=== PATIENT | female | born 1955 | race Two or more races ===

== ENCOUNTER 2024-03-24 15:17 | Inpatient (IN) | payer MEDICARE, OTHER, SELFPAY ==
[2024-03-24] VITALS (8 sets, daily range): BP systolic 102–130; BP diastolic 60–95; BMI 27.4; BMI 26.3
[2024-03-24 09:32] LABS: COVID-19 Antigen Negative (Negative)
[2024-03-24] MEDS: TORADOL 15 MG IV (11:46)
[2024-03-24 11:49] LABS: % Basophils 0.3 % (0-2); % Eosinophils 6.3 % (0-6); % Immature Granulocytes 0.2 % (0-0.5); % Lymphocytes 46.9 % (20.5-51.1); % Monocytes 8.6 % (1.7-9.3); % Neutrophils 37.7 % (42.2-75.2); Absolute Eosinophils 0.4 10^3/uL (0-0.7); Absolute Lymphocytes 2.8 10^3/uL (1.2-3.4); Absolute Monocytes 0.5 10^3/uL (0.1-0.6); Absolute Neutrophils 2.3 10^3/uL (1.4-6.5); Hematocrit 39.8 % (37.0-47.0); Mean Corp Hgb Conc. 32.7 g/dL (33.0-37.0); Mean Corpuscular Hgb 25.9 pg (27.0-31.0); Mean Corpuscular Volume 79.4 fL (81.0-99.0); Mean Platelet Volume 9.8 fL (7.4-10.4); Nucleated Red Blood Cells % 0 %; Platelet Count 213 10^3/uL (130-400); Red Blood Cell Count 5.01 10^6/uL (4.20-5.40); Red Cell Dist. Width 13.5 % (11.5-14.5)
[2024-03-24 12:02] LABS: Albumin 4.3 g/dl (3.5-5.0)
[2024-03-24 12:04] LABS: Lactic Acid 0.7 mmol/L (0.7-2.0)
[2024-03-24 12:12] LABS: ALT (SGPT) 17 U/L (0-35); AST (SGOT) 25 U/L (14-36); Alkaline Phosphatase 71 U/L (38-126); Blood Urea Nitrogen 17 mg/dl (7-17); Calcium 9.5 mg/dl (8.4-10.2); Carbon Dioxide 32 mmol/L (22-30); Chloride 96 mmol/L (98-107); Estimated Creatinine Clearance 72 ml/min; Glucose 108 mg/dl (70-99); Potassium 3.7 mmol/L (3.5-5.1); Sodium 139 mmol/L (135-145); Total Bilirubin 0.5 mg/dl (0.2-1.3); Total Protein 7.5 g/dl (6.3-8.2); eGFR > 60.00
--- NOTE | 2024-03-24 12:37 | ED.GENMED ---
History of Present Illness
<Alfonzo Maxwell Jr., PA-C - Last Filed: 03/24/24 14:32>
General
Chief Complaint: Cold/Flu/URI Symptoms
Source: patient
Exam Limitations: none
Time Seen by Provider: 03/24/24 10:19
Nursing documentation reviewed up to this point in time: agreed with
History of Present Illness
History of Present Illness:
68-year-old female past medical history of hypertension presenting to the emergency department today with concerns of initial cough sore throat congestion over the past week but has more recently developed right sided nostril discomfort with
spreading redness into the right side of her face. Worsening since last night. Denies specific fevers chest pain shortness of breath.
Past History
<Alfonzo Maxwell Jr., PA-C - Last Filed: 03/24/24 14:32>
Past History
ED Past Medical History: HTN and Hypothyroidism
ED Past Surgical History: Appendectomy
Social History
Tobacco: Non-smoker
Alcohol: None
Drug: None
Living: with family
Family History
Family History: Early CAD (Mother age 50 [place], Father age 39 [place], brother age 39 [place], sister age 61 [place], other brother with CAD and multiple stents.)
Review of Systems
<CASTILLO Avila Jr. Last Filed: 03/24/24 14:32>
Review of Systems
Allergies reviewed?: Yes
All Other Systems: ROS reviewed and negative except as documented in HPI and ROS
Phy Exam
<Alfonzo Maxwell Jr., PA-C - Last Filed: 03/24/24 14:32>
Physical Exam
Physical Exam:
GENERAL: Alert , in no apparent distress
EYE: pupils equal and reactive
NECK: Supple, no significant adenopathy.
ENT: Redness and swelling to the right side of the face and as well as significant swelling to the right nostril. No purulent drainage normal posterior pharynx no significant neck lymphadenopathy o/p clr, mmm.
CARDIAC: Regular rate and rhythm .
LUNGS: Clear breath sounds bilaterally, no acute respiratory distress, no wheezes/rales/rhonchi
ABDOMEN: Soft, without focal tenderness, no r/g, no cvat
NEUROLOGICAL: Alert and oriented, no focal neuro deficits
SKIN: Warm and dry, skin intact.
MUSCULOSKELETAL: No edema, well perfused.
PSYCH: Normal and appropriate interaction.
Course
<Alfonzo Maxwell Jr., PA-C - Last Filed: 03/24/24 14:32>
Orders/Labs/Results
Orders:
Orders
03/24/24 09:03
COVID-19 Antigen Urgent
Source: Nasal Swab
Influenza A+B Rapid Molecular Urgent
ABRAM Source: Nasal Swab
Specimen Description:
03/24/24 11:31
CT Facial Bones W/ Iv Contrast Urgent
Comment:
Reason For Exam: swelling right side of face/nose
03/24/24 11:35
CBC/With Diff [Complete Blood Count/With Diff] Urgent
CMP [Comprehensive Metabolic Panel] Urgent
Lactic Acid Urgent
Wound Culture [Wound/Abscess/Other Culture] Urgent
ABRAM Source: Face
Specimen Description: Right
Date Specimen was Collected: 03/24/24
Time Specimen was Collected: 11:33
03/24/24 11:38
Ketorolac [Toradol] 15 mg IV NOW STA
03/24/24 13:28
Ampicillin/Sulbactam 3 G [Unasyn] 3 gm 0.9% Sodium Chloride 100 ml [Nss] 100 ml IV NOW
03/24/24 14:13
Vancomycin [Vancocin] 1,500 mg 0.9% Sodium Chloride [Nss] 20 ml 0.9% Sodium Chloride 250 ml [Nss] 250 ml IV NOW
03/24/24 14:18
Ampicillin/Sulbactam 3 G [Unasyn] 3 gm 0.9% Sodium Chloride 100 ml [Nss] 100 ml IV NOW
Abnormal Lab Results
03/24/24
11:35
MCV 79.4 L fL
(81.0-99.0)
MCH 25.9 L pg
(27.0-31.0)
MCHC 32.7 L g/dL
(33.0-37.0)
Neutrophils % 37.7 L %
(42.2-75.2)
Eosinophils % 6.3 H %
(0-6)
Chloride 96 L mmol/L
(98-107)
Carbon Dioxide 32 H mmol/L
(22-30)
Glucose 108 H mg/dl
(70-99)
03/24/24 11:35
03/24/24 11:35
Vital Signs
Initial and Last Documented VS:
Initial Vital Signs
Temp Pulse Resp BP Pulse Ox
97.9 F 68 18 119/76 98
03/24/24 08:56 03/24/24 08:56 03/24/24 08:56 03/24/24 08:56 03/24/24 08:56
Last Documented Vital Signs
Temp Pulse Resp BP Pulse Ox
97.9 F 60 18 116/63 99
03/24/24 08:56 03/24/24 12:30 03/24/24 08:56 03/24/24 12:00 03/24/24 12:30
<Mike Ryan MD - Last Filed: 03/24/24 14:18>
Orders/Labs/Results
Orders:
Orders
03/24/24 09:03
COVID-19 Antigen Urgent
Source: Nasal Swab
Influenza A+B Rapid Molecular Urgent
ABRAM Source: Nasal Swab
Specimen Description:
03/24/24 11:31
CT Facial Bones W/ Iv Contrast Urgent
Comment:
Reason For Exam: swelling right side of face/nose
03/24/24 11:35
CBC/With Diff [Complete Blood Count/With Diff] Urgent
CMP [Comprehensive Metabolic Panel] Urgent
Lactic Acid Urgent
Wound Culture [Wound/Abscess/Other Culture] Urgent
ABRAM Source: Face
Specimen Description: Right
Date Specimen was Collected: 03/24/24
Time Specimen was Collected: 11:33
03/24/24 11:38
Ketorolac [Toradol] 15 mg IV NOW STA
03/24/24 13:28
Ampicillin/Sulbactam 3 G [Unasyn] 3 gm 0.9% Sodium Chloride 100 ml [Nss] 100 ml IV NOW
03/24/24 14:13
Vancomycin [Vancocin] 1,500 mg 0.9% Sodium Chloride [Nss] 20 ml 0.9% Sodium Chloride 250 ml [Nss] 250 ml IV NOW
03/24/24 14:18
Ampicillin/Sulbactam 3 G [Unasyn] 3 gm 0.9% Sodium Chloride 100 ml [Nss] 100 ml IV NOW
Abnormal Lab Results
03/24/24
11:35
MCV 79.4 L fL
(81.0-99.0)
MCH 25.9 L pg
(27.0-31.0)
MCHC 32.7 L g/dL
(33.0-37.0)
Neutrophils % 37.7 L %
(42.2-75.2)
Eosinophils % 6.3 H %
(0-6)
Chloride 96 L mmol/L
(98-107)
Carbon Dioxide 32 H mmol/L
(22-30)
Glucose 108 H mg/dl
(70-99)
03/24/24 11:35
03/24/24 11:35
Vital Signs
Initial and Last Documented VS:
Initial Vital Signs
Temp Pulse Resp BP Pulse Ox
97.9 F 68 18 119/76 98
03/24/24 08:56 03/24/24 08:56 03/24/24 08:56 03/24/24 08:56 03/24/24 08:56
Last Documented Vital Signs
Temp Pulse Resp BP Pulse Ox
97.9 F 60 18 116/63 99
03/24/24 08:56 03/24/24 12:30 03/24/24 08:56 03/24/24 12:00 03/24/24 12:30
<Alfonzo Maxwell Jr., PA-C - Last Filed: 03/24/24 14:32>
MDM/Problems Addressed
MDM/Problems Addressed:
68-year-old female presenting to the emergency department today for concerns of initial upper respiratory symptoms over the past week but now worsening swelling to the right side of the face. Upon arrival vital signs are normal patient in no
distress labs unremarkable there is concern of potential deeper space infection to the face concerning this CT scan ordered for further assessment. CT scan showing inflammation to the patient's face as well as sinusitis. Patient was reassessed
ongoing redness and swelling to the right side of the face. Concerning concerning location plan to with IV antibiotics and bring in for monitoring overnight.
<Alfonzo Maxwell Jr., PA-C - Last Filed: 03/24/24 14:32>
*Critical Care Note
Total Time (30-74mins, 75-104mins- exclusive of procedures): Not Applicable
ED Attending Note
<Alfonzo Maxwell Jr., PA-C - Last Filed: 03/24/24 14:32>
-
Portions of this chart may have been created with voice recognition software.� Occasional wrong word or��sound alike� substitutions may have occurred due to the inherent limitations of voice recognition software.
<Mike Ryan MD - Last Filed: 03/24/24 14:18>
ED Attending Note
Patient seen and examined by attending physician: Yes
I performed the substantive portion of visit, reviewed & personally made and approve the management plan that is documented in note by myself or ELIZ.: Yes
ED Attending Note:
Patient with swelling pain to the right nares extending to the right cheek. Progressive over days. No fever. Patient is diabetic. On exam patient has moderate swelling to the right side of the nares with some induration. Erythema and swelling
extending to the right cheek up towards the right eye.
Labs are stable. CT shows sinusitis. Clinically this is likely a early abscess from the right nares. Given the degree of swelling redness diabetes patient warrants inpatient IV antibiotics.
Discharge Plan
Departure
Patient Disposition: Admit
Date of Disposition: 03/24/24
Time of Disposition: 14:31
Admit to: Med/Surg
Admit to doctor: Liam
Presentation/result/management discussed w/ accepting MD/DO: Hospitalist
Patient with high blood pressure during this ER visit?: No
Condition: Good
Covid-19: Not Applicable
Discharge Problem:
Acute sinusitis, Cellulitis of face
Prescriptions:
No Action
amlodipine 2.5 mg Tablet
2.5 mg PO DAILY
levothyroxine 88 mcg Tablet
88 mcg PO DAILY
lisinopril-hydrochlorothiazide 20-25 mg Tablet
1 tab PO DAILY
rosuvastatin 20 mg Tablet
20 mg PO DAILY
Tremfya 100 mg/mL syringe
100 mg SC [id number]
Ozempic 1 mg/dose (4 mg/3 mL) Pen Injector
1 mg SC WE
Referrals:
Mike Garcai MD [Family Provider] -
Interventions
Interventions:
*Risk Screen - Suicide Last Done: 03/24/24 08:56
*General Assessment Last Done: 03/24/24 08:56
*Neglect/Abuse Screening Last Done: 03/24/24 08:56
ED- Fall Risk Assessment Last Done: 03/24/24 10:29
*ED COVID-19 Vaccine History Last Done: 03/24/24 10:29
ED- Pulmonary Assessment Last Done: 03/24/24 10:29
Discharge Date and Time
Print Language: ROMANSH
--- NOTE | 2024-03-24 14:31 | HPS.HSE ---
Family Physician
-
Family Physician: Mike Garcia
Chief Complaint
-
right sided facial swelling, pain
History of Present Illness
68-year-old female past medical history of hypertension,hypothyroidism, type 2 Dm, HLD presenting to the emergency department today with concerns of initial cough sore throat congestion over the past week. for past two days, noticed right sided
nostril pain, redness and swelling which spreaded to her right check and ears. denied fever, chills, chest pain, sob. stated VIZCARRA. denied dizziness or syncopal episode. denied abdominal pain,n,v,d. denied dysuria or hematuria.
received vanco and [facility] ER . admitting for further management.
Medical History
Past Medical History
Past Medical History: Reports Other
Additional Past Medical History:
type 2 DM
hypothyroidism
htn
psoiriasis
latent TB
Past Surgical History: Reports Other
Additional Past Surgical History:
breast reduction
appendectomy
Social History
Tobacco: Non-smoker
Alcohol: None
Drug: None
Living: With Family
Family History
Family History: Not pertinent
Allergies / Home Medications
Allergies reflects when Allergies were last updated in [employer].
Home Medications with original date entered in [employer]
Allergy/Medication List:
Allergies
Allergy/AdvReac Type Severity Reaction Status Date / Time
No Known Allergies Allergy Verified 03/24/24 08:55
Home Medications
amlodipine 2.5 mg tablet 2.5 mg PO DAILY 03/24/24
guselkumab 100 mg/mL subcutaneous syringe (Tremfya) 100 mg SC [id number] 03/24/24
levothyroxine 88 mcg tablet 88 mcg PO DAILY 03/24/24
lisinopril 20 mg-hydrochlorothiazide 25 mg tablet 1 tab PO DAILY 03/24/24
rosuvastatin 20 mg tablet 20 mg PO DAILY 03/24/24
semaglutide 1 mg/dose (4 mg/3 mL) subcutaneous pen injector (Ozempic) 1 mg SC WE 03/24/24
Review of Systems
-
Constitutional: Reports No Symptoms
EENT: Reports No Symptoms
Respiratory: Reports No Symptoms
Cardiac: Reports No Symptoms
Abdomen/GI: Reports No Symptoms
: Reports No Symptoms
Musculoskeletal: Reports No Symptoms
Skin: Reports Other (right facial redness, swelling )
Neurological: Reports No Symptoms
Endocrine: Reports No Symptoms
Hematologic/Lymphatic: Reports No Symptoms
Psych: Reports No Symptoms
Physical Exam
Vital Signs
Vital Signs
Temp Pulse Resp BP Pulse Ox
97.9 F 60 18 116/63 99
03/24/24 08:56 03/24/24 12:30 03/24/24 08:56 03/24/24 12:00 03/24/24 12:30
Physical Exam
General: Well Developed, Well Nourished and No Apparent Distress
HEENT: NormoCephalic, Moist mucous membranes and Atraumatic
Respiratory: Clear
Cardiac: S1/S2 and Regular Rhythm; No Murmur or Rub
GI: Soft, Non Tender, Non Distended and Normal Bowel Sounds; No Organomegaly
Rectal: Deferred by Provider
Musculoskeletal: No Clubbing, No Cyanosis and No Edema
Skin: Other (right facial redness, swelling)
Neuro: AO x 3 and Nonfocal/grossly intact
Psych: Calm
Laboratory Results
-
03/24/24 11:35
03/24/24 11:35
Laboratory Results
Lactic Acid 0.7 mmol/L (0.7-2.0) 03/24/24 11:35
Total Bilirubin 0.5 mg/dl (0.2-1.3) 03/24/24 11:35
AST 25 U/L (14-36) 03/24/24 11:35
ALT 17 U/L (0-35) 03/24/24 11:35
Alkaline Phosphatase 71 U/L (38-126) 03/24/24 11:35
Data Reviewed
-
CT Scan: Report Reviewed by me
Lab Data: Labs Reviewed by me
Impression/Plan
-
# Right-sided facial cellulitis
-CT with Mild inflammatory fat stranding of the right facial subcutaneous fat. No drainable fluid collection within the limitations of streak artifact from dental amalgam. Severe mucosal thickening of the right maxillary and right ethmoid sinuses.
-Culture from the wound obtained
-COVID and flu negative
-Unasyn continued
-Tylenol prn for fever
-ENT consulted
# Essential hypertension
-Blood pressure stable
Norvasc and lisinopril/HCTZ continue with hold parameters
# Hypothyroidism
-Levothyroxine continued
# Hyperlipidemia
-Statin continued
# Type 2 diabetes
-Sliding scale
-Carb controlled diet
-Hold Ozempic
# DVT prophylaxis
-Lovenox subcu
# CODE STATUS
-Full code
--- NOTE | 2024-03-24 14:45 | W.PN.UPDATE ---
Update Note
Progress Note Update
This note serves as an addendum to the H&P by shoe repairman ELIZ iMmi PEDRAZA
68F Non smoker HX HTN , Hypothyroid pw concerns of initial cough sore throat congestion over the past week but has more recently developed right sided nostril discomfort with spreading redness into the right side of her face. Worsening since last
night.
ROS: Denies specific fevers chest pain shortness of breath.
Vital Signs
Temp Pulse Resp BP Pulse Ox
97.9 F 60 18 116/63 99
03/24/24 08:56 03/24/24 12:30 03/24/24 08:56 03/24/24 12:00 03/24/24 12:30
PE
Gen: Not toxic , NAD
HEENT:
- Redness and swelling to the right side of the face + significant swelling to the right nostril.
- No purulent drainage normal posterior pharynx
- No significant neck lymphadenopathy
Neck: supple
Lungs: CTA
Cor: RRR S1 S2
Abdomen: soft benign exam
GATEKEEPER: AAO3 NFND
MS: edema
Psych: appropriate
Laboratory Tests
03/24/24 03/24/24
09:03 11:35
WBC 6.0
MCV 79.4 L
Sodium 139
Potassium 3.7
Chloride 96 L
Carbon Dioxide 32 H
BUN 17
Creatinine 0.7
eGFR > 60.00
Glucose 108 H
SARS-CoV-2 Antigen Negative
NEG Covid
NEG flu A & B
CT Facial Bones W/ Iv Contrast
Mild inflammatory fat stranding of the right facial subcutaneous fat.
No drainable fluid collection within the limitations of streak artifact from dental amalgam.
Severe mucosal thickening of the right maxillary and right ethmoid sinuses.
NO PRIOR hospitalist admission:
ASSESSMENT & PLAN
Rt facial cellulitis WITHOUT drainable fluid collection
Severe right maxillary and right ethmoid sinusitis
- Afebrile. Nl WCC
- agree with IV Unasyn plus first dose of Vancomycin ( No prior HX MRSA)
- f/u Wd Cx
- ENT consult
T2DM
- on Ozempic 1mg SC week
Hypotyroid
- c/w RN ACUTE DIALYSIS LT4
[place] HTN
- c/w RN ACUTE DIALYSIS Lisinopril/ HCTZ
HLD
- c/w Rosuvastatin
DVT Px: LMWH
Code: Full
IP MS
[2024-03-24] MEDS: UNASYN IV ×2 (16:49→22:18)
[2024-03-24 17:51] LABS: Glucose - Point of Care 147 mg/dl (70-99)
--- NOTE | 2024-03-24 18:28 | PTCARENOTE ---
pt transferred from ED to in [id number] with daughter at bedside. accucheck done, minimal hearing/ hearing loss on right side.
[2024-03-24] MEDS: LOVENOX SC (18:37)
[2024-03-24 21:35] LABS: Glucose - Point of Care 137 mg/dl (70-99)
[2024-03-25] MEDS: UNASYN IV ×2 (04:36→09:50)
[2024-03-25] MEDS: SYNTHROID 88 MCG PO (06:07)
[2024-03-25 07:05] VITALS: BP 141/64
[2024-03-25 07:21] LABS: Hematocrit 36.9 % (37.0-47.0); Hemoglobin 12.3 g/dL (12.0-16.0); Mean Corp Hgb Conc. 33.3 g/dL (33.0-37.0); Mean Corpuscular Hgb 26.2 pg (27.0-31.0); Mean Corpuscular Volume 78.5 fL (81.0-99.0); Mean Platelet Volume 10.5 fL (7.4-10.4); Platelet Count 200 10^3/uL (130-400); Red Cell Dist. Width 13.4 % (11.5-14.5); White Blood Cell Count 4.5 10^3/uL (4.8-10.8)
[2024-03-25 07:50] LABS: Blood Urea Nitrogen 24 mg/dl (7-17); Calcium 9.2 mg/dl (8.4-10.2); Carbon Dioxide 31 mmol/L (22-30); Chloride 99 mmol/L (98-107); Estimated Creatinine Clearance 63 ml/min; Glucose 114 mg/dl (70-99); Potassium 3.7 mmol/L (3.5-5.1); Sodium 141 mmol/L (135-145); eGFR > 60.00
[2024-03-25] MEDS: ZESTRIL 20 MG PO (08:07)
[2024-03-25 08:08] LABS: Glucose - Point of Care 99 mg/dl (70-99)
[2024-03-25] MEDS: CRESTOR 20 MG PO (08:08)
[2024-03-25] MEDS: ORETIC 25 MG PO (08:08)
[2024-03-25] MEDS: NORVASC 2.5 MG PO (08:08)
--- NOTE | 2024-03-25 09:56 | CM ---
CM met with pt at bedside.
Confirmed PCP is Mike Garcia and pharmacy is [facility]. Reports + prescription plan.
Pt resides in a 5th floor apartment with elevator access.
Ind w ADL's and ambulation using no AD prior to admission. + [employer].
Pt has no HC or SNF hx.
Discharge dispo home no needs. CM to follow and watch for needs.
--- NOTE | 2024-03-25 11:50 | W.PN.HOSP.TC ---
Today's Communication/Plan
-
monitor vitals
see plan
Continue to follow culture
Continue to biotics
MRSA screen
Assessment / Plan
Assessment / Plan
General: Well Developed, Well Nourished and No Apparent Distress
HEENT: NormoCephalic, Moist mucous membranes and Atraumatic
Respiratory: Clear
Cardiac: S1/S2 and Regular Rhythm; No Murmur or Rub
GI: Soft, Non Tender, Non Distended and Normal Bowel Sounds; No Organomegaly
Musculoskeletal: No Edema
Skin: Other (right facial redness, swelling)
Neuro: AO x 3 and Nonfocal/grossly intact
Psych: Calm
Right-sided facial cellulitis
-CT with Mild inflammatory fat stranding of the right facial subcutaneous fat. No drainable fluid collection within the limitations of streak artifact from dental amalgam. Severe mucosal thickening of the right maxillary and right ethmoid sinuses.
-Culture from the wound obtained; f/u cx
-COVID and flu negative
-Unasyn continued; check MRSA screen
-Tylenol prn for fever
-ENT consulted
# Essential hypertension
-Blood pressure stable
Norvasc and lisinopril/HCTZ continue with hold parameters
# Hypothyroidism
-Levothyroxine continued
# Hyperlipidemia
-Statin continued
# Type 2 diabetes
-Sliding scale
-Carb controlled diet
-Hold Ozempic
A1c 6
# DVT prophylaxis
-Lovenox subcu
# CODE STATUS
-Full code
Anticipated Discharge: 24 - 48 hours
Subjective/Interval History
-
Date of Service: March 25, 2024
denies pain
Objective Data
-
Labs:
Laboratory Results
03/25/24
06:11
WBC 4.5 L
Hgb 12.3
Hct 36.9 L
Plt Count 200
Sodium 141
Potassium 3.7
Chloride 99
Carbon Dioxide 31 H
BUN 24 H
Creatinine 0.8
Glucose 114 H
Calcium 9.2
Vital Signs:
Vital Signs
Temp Pulse Resp BP Pulse Ox
97.7 F 65 16 141/64 99
03/25/24 07:05 03/25/24 08:07 03/25/24 07:05 03/25/24 08:08 03/25/24 07:05
I&O
03/24/24 03/25/24 03/26/24
06:59 06:59 06:59
Intake Total 720 / 720
Balance 720 / 720
[2024-03-25 12:56] LABS: Glucose - Point of Care 78 mg/dl (70-99)
--- NOTE | 2024-03-25 13:35 | CON.MD ---
Consultation - Medical
-
Pt seen and full consult dictated.
Facial cellulitis likely originating from right nasal vestibule.
MRSA is highly probable but screening is still pending.
Agree with IV antibiotics but would add topical mupirocin.
She also has chronic sinusitis which is likely unrelated to the cellulitis but we will need to see her as an outpatient
--- NOTE | 2024-03-25 14:12 | PHA.VAN.IN ---
Addendum entered and electronically signed by Ronda Falcon RPH 03/25/24 18:51:
Patient experienced infusion reaction with first dose vancomycin.
Infuse over 10mg/min (150 min = 2H 30 min)
Original Note:
Assessment
- Assessment
Renal Function: Appears similar to baseline
Maximum Temperature: 98.8
Minimum Temperature: 97.7
AUC Dosing Plan
- Dosing Variables
Dosing Weight (kg): 74
Dosing CrCl (ml/min): 63
Vd coefficient (L/kg): 0.7
- Empiric Dosing
Initial / Loading Dose: Vanc 1500mg--administration pending
Maintenance Regimen: Vanc 1500mg IV Q24H
Estimated AUC (mcg*h/mL): 532.5
Estimated Peak (mcg*h/mL): 38.9
Estimated Trough (mcg/ml): 10.9
Estimated Half Life (H): 12.2
- Monitoring
No levels ordered at this time: Consider levels after 03/28 dose
Pharmacokinetics Vancomycin I
- -
Patient Age: 68
Patient Sex: Female
Vancomycin Day #: 1
Indication: Skin And Soft Tissue
Requesting Provider: Leighton
Height / Weight:
Height 5 ft 6 in
Actual Weight 73.992 kg
IBW in k.3
Adjusted BW in k.2
- Vital Signs / Lab Results
Temp Pulse Resp BP Pulse Ox
97.7 F 65 16 141/64 99
03/25/24 07:05 03/25/24 08:07 03/25/24 07:05 03/25/24 08:08 03/25/24 07:05
Lab Results - Hematology
03/24/24 03/25/24
11:35 06:11
WBC 6.0 4.5 L
Lab Results - Chemistry
03/24/24 03/25/24
11:35 06:11
BUN 17 24 H
Creatinine 0.7 0.8
Estimated Creat Clear 72 63
Albumin 4.3
03/24/24
11:35
Lactic Acid 0.7
Microbiology Results
03/24/24 11:35 Wound Culture - Preliminary
Face - Right Gram Stain - Preliminary
03/24/24 09:03 Influenza Types A & B ([facility]) - Final
Nasal Swab Negative for Influenza A & B, NAAT
Negative results must be combined with clinical observations
and patient history.
Nucleic Acid Amplification test (NAAT)performed on the
[employer] platform.
[2024-03-25] MEDS: VANCOCIN 300 ML IV (14:40)
[2024-03-25] MEDS: VANCOCIN 300 MG IV (14:40)
[2024-03-25 15:05] VITALS: BP 122/63
[2024-03-25 16:38] LABS: Glucose - Point of Care 93 mg/dl (70-99)
--- NOTE | 2024-03-25 16:49 | PTCARENOTE ---
IV vanco completed. pt flushed and has itchy head 10 minutes post administration. MD made aware. IV benadryl ordered for one time dose. will give morning dose at a slower rate per MD discussion
[2024-03-25] MEDS: LOVENOX 40 MG SC (17:25)
[2024-03-25] MEDS: BENADRYL 25 MG IV (17:25)
[2024-03-25] MEDS: BACTROBAN 2% OINTMENT 1 APPLIC NASAL (20:49)
[2024-03-25 23:14] VITALS: BP 103/61
[2024-03-26] MEDS: SYNTHROID 88 MCG PO (05:08)
[2024-03-26] MEDS: VANCOCIN 300 ML IV (05:10)
[2024-03-26] MEDS: VANCOCIN 300 MG IV (05:10)
[2024-03-26 07:10] VITALS: BP 124/68
[2024-03-26 07:25] LABS: Glucose - Point of Care 101 mg/dl (70-99)
[2024-03-26 08:39] LABS: Hematocrit 38.2 % (37.0-47.0); Hemoglobin 12.6 g/dL (12.0-16.0); Mean Corpuscular Volume 78.8 fL (81.0-99.0); Mean Platelet Volume 10.4 fL (7.4-10.4); Platelet Count 225 10^3/uL (130-400); Red Blood Cell Count 4.85 10^6/uL (4.20-5.40); Red Cell Dist. Width 13.3 % (11.5-14.5); White Blood Cell Count 4.4 10^3/uL (4.8-10.8)
[2024-03-26] MEDS: BACTROBAN 2% OINTMENT 1 APPLIC NASAL ×2 (08:39→19:59)
[2024-03-26] MEDS: CRESTOR 20 MG PO (08:40)
[2024-03-26] MEDS: ZESTRIL 20 MG PO (08:40)
[2024-03-26] MEDS: NORVASC 2.5 MG PO (08:41)
[2024-03-26] MEDS: ORETIC 25 MG PO (08:41)
[2024-03-26 09:08] LABS: Blood Urea Nitrogen 19 mg/dl (7-17); Calcium 9.6 mg/dl (8.4-10.2); Carbon Dioxide 33 mmol/L (22-30); Chloride 98 mmol/L (98-107); Estimated Creatinine Clearance 63 ml/min; Glucose 99 mg/dl (70-99); Potassium 4.5 mmol/L (3.5-5.1); Sodium 142 mmol/L (135-145); eGFR > 60.00
--- NOTE | 2024-03-26 10:10 | PHA.VAN.FU ---
Vancomycin Assessment / Plan
- Assessment
Renal Function: Stable
WBC's are: Stable
In the past 24 hrs, patient has been: Afebrile
- Dosing Plan
Continue: Vanc 1500mg IV Q24H
- Monitoring Plan
No level(s) ordered at this time: Consider levels after 03/28 0600 dose.
- Follow Up
Pharmacy will continue to follow.
Vancomycin Follow UP
- -
Patient Age: 68
Patient Sex: Female
Vancomycin Day #: 2
Indication: Skin And Soft Tissue
Requesting Provider: Leighton
Height / Weight:
Height 5 ft 6 in
Actual Weight 73.992 kg
IBW in k.3
Adjusted BW in k.2
- Vital Signs / Lab Results
Temp Pulse Resp BP Pulse Ox
98.4 F 70 16 124/68 96
03/26/24 07:10 03/26/24 08:41 03/26/24 07:10 03/26/24 08:41 03/26/24 07:10
Lab Results - Hematology
03/24/24 03/25/24 03/26/24
11:35 06:11 07:54
WBC 6.0 4.5 L 4.4 L
Lab Results - Chemistry
03/24/24 03/25/24 03/26/24
11:35 06:11 07:54
BUN 17 24 H 19 H
Creatinine 0.7 0.8 0.8
Estimated Creat Clear 72 63 63
Albumin 4.3
03/24/24
11:35
Lactic Acid 0.7
Microbiology Results
03/24/24 11:35 Wound Culture - Preliminary
Face - Right Gram Stain - Preliminary
03/24/24 09:03 Influenza Types A & B ([facility]) - Final
Nasal Swab Negative for Influenza A & B, NAAT
Negative results must be combined with clinical observations
and patient history.
Nucleic Acid Amplification test (NAAT)performed on the
[employer] platform.
--- NOTE | 2024-03-26 11:26 | W.PN.HOSP.TC ---
Today's Communication/Plan
-
monitor vitals
see plan
cw abx
follow cultures
Assessment / Plan
Assessment / Plan
General: Well Developed, Well Nourished and No Apparent Distress
HEENT: NormoCephalic, Moist mucous membranes and Atraumatic
Respiratory: Clear
Cardiac: S1/S2 and Regular Rhythm; No Murmur or Rub
GI: Soft, Non Tender, Non Distended and Normal Bowel Sounds
Musculoskeletal: No Edema
Skin: Other (right facial redness, swelling)
Neuro: AO x 3 and Nonfocal/grossly intact
Psych: Calm
Right-sided facial cellulitis
-CT with Mild inflammatory fat stranding of the right facial subcutaneous fat. No drainable fluid collection within the limitations of streak artifact from dental amalgam. Severe mucosal thickening of the right maxillary and right ethmoid sinuses.
-Culture from the wound obtained; f/u cx, growing gram-positive cocci. Final culture pending
-COVID and flu negative
-Spoke with ENT, started vancomycin. Developed mild flushing after vancomycin 03/25. Advised nurse to do slow infusion. Tolerated vancomycin today; check MRSA screen pending
-Tylenol prn for fever
-ENT consulted
# Essential hypertension
-Blood pressure stable
Norvasc and lisinopril/HCTZ continue with hold parameters
# Hypothyroidism
-Levothyroxine continued
# Hyperlipidemia
-Statin continued
# Type 2 diabetes
-Sliding scale
-Carb controlled diet
-Hold Ozempic
A1c 6
# DVT prophylaxis
-Lovenox subcu
# CODE STATUS
-Full code
Anticipated Discharge: Within 24 hours
Subjective/Interval History
-
Date of Service: March 26, 2024
Denies nausea
Objective Data
-
Labs:
Laboratory Results
03/26/24
07:54
WBC 4.4 L
Hgb 12.6
Hct 38.2
Plt Count 225
Sodium 142
Potassium 4.5
Chloride 98
Carbon Dioxide 33 H
BUN 19 H
Creatinine 0.8
Glucose 99
Calcium 9.6
Vital Signs:
Vital Signs
Temp Pulse Resp BP Pulse Ox
98.4 F 70 16 124/68 96
03/26/24 07:10 03/26/24 08:41 03/26/24 07:10 03/26/24 08:41 03/26/24 11:00
I&O
03/25/24 03/26/24 03/27/24
06:59 06:59 06:59
Intake Total 720 / 720 2220 / 2220
Balance 720 / 720 2220 / 2220
--- NOTE | 2024-03-26 11:48 | W.PN.ENT ---
Addendum entered and electronically signed by Stephan Mason MD 03/26/24 11:54:
The patient did wake up and is able to confirm that she feels much better and is now nearly completely asymptomatic and eager for discharge
Original Note:
Today's Communication
-
May call [phone] Mason or colleague
Impression / Plan
-
Greatly improved facial cellulitis
Pt has improved enough that she can be discharged from my point of view today.
Would consider d/c on both Augmentin and Bactrim to also cover possible MRSA.
She should f/u with us in the office sometime this week.
Subjective Data
-
Patient fast asleep and could not be easily aroused
Objective Data
-
Vital Signs
Temp Pulse Resp BP Pulse Ox
98.4 F 70 16 124/68 96
03/26/24 07:10 03/26/24 08:41 03/26/24 07:10 03/26/24 08:41 03/26/24 11:00
Cultures pending
Intake & Output
03/25/24 03/26/24 03/27/24
06:59 06:59 06:59
Intake:
Oral fluids 480 / 480 1440 / 1440
IV piggybacks 240 / 240 360 / 360
Blood products 420 / 420
Other:
Number of approximated MODERATE 1 3
amounts of urine
Lab Results
03/26/24 07:54
03/26/24 07:54
Calcium 9.6 mg/dl (8.4-10.2) 03/26/24 07:54
Total Bilirubin 0.5 mg/dl (0.2-1.3) 03/24/24 11:35
AST 25 U/L (14-36) 03/24/24 11:35
ALT 17 U/L (0-35) 03/24/24 11:35
Alkaline Phosphatase 71 U/L (38-126) 03/24/24 11:35
Physical Exam
-
There is greatly reduced erythema and edema; no eye involvement
[2024-03-26 15:00] VITALS: BP 124/66
[2024-03-26 16:48] LABS: Glucose - Point of Care 97 mg/dl (70-99)
[2024-03-26] MEDS: LOVENOX 40 MG SC (17:21)
[2024-03-26 21:24] LABS: Glucose - Point of Care 130 mg/dl (70-99)
[2024-03-26 23:03] VITALS: BP 121/55
[2024-03-27] MEDS: SYNTHROID 88 MCG PO (06:30)
[2024-03-27] MEDS: VANCOCIN 300 ML IV (06:31)
[2024-03-27] MEDS: VANCOCIN 300 MG IV (06:31)
[2024-03-27 07:06] LABS: Hematocrit 39.2 % (37.0-47.0); Hemoglobin 13.1 g/dL (12.0-16.0); Mean Corp Hgb Conc. 33.4 g/dL (33.0-37.0); Mean Corpuscular Hgb 26.3 pg (27.0-31.0); Mean Corpuscular Volume 78.6 fL (81.0-99.0); Mean Platelet Volume 10.3 fL (7.4-10.4); Platelet Count 228 10^3/uL (130-400); Red Blood Cell Count 4.99 10^6/uL (4.20-5.40); Red Cell Dist. Width 13.2 % (11.5-14.5); White Blood Cell Count 4.3 10^3/uL (4.8-10.8)
[2024-03-27 07:10] VITALS: BP 129/62
[2024-03-27 07:11] LABS: Glucose - Point of Care 115 mg/dl (70-99)
[2024-03-27 07:21] LABS: Blood Urea Nitrogen 23 mg/dl (7-17); Calcium 9.9 mg/dl (8.4-10.2); Carbon Dioxide 31 mmol/L (22-30); Chloride 96 mmol/L (98-107); Estimated Creatinine Clearance 63 ml/min; Glucose 112 mg/dl (70-99); Sodium 140 mmol/L (135-145); eGFR > 60.00
[2024-03-27] MEDS: CRESTOR 20 MG PO (08:12)
[2024-03-27] MEDS: ORETIC 25 MG PO (08:12)
[2024-03-27] MEDS: ZESTRIL 20 MG PO (08:12)
[2024-03-27] MEDS: NORVASC 2.5 MG PO (08:12)
[2024-03-27] MEDS: BACTROBAN 2% OINTMENT 1 APPLIC NASAL (08:12)
--- NOTE | 2024-03-27 08:17 | PN.CDI ---
CDI
- -
CDI:
Physician Documentation Request
Admit Date: 03/24/24 15:17
Dear Doctor Leighton,
Please review the following and provide your response in the progress notes.
Clinical Indicators:
PN, 03/26
#Right-sided facial cellulitis
#...-CT with Mild inflammatory fat stranding of the right facial subcutaneous fat.
# Type 2 diabetes
#...-Hold Ozempic
#...A1c 6
Laboratory Tests
03/25/24
06:11
Hemoglobin A1c 6.0 H
Please clarify the relationship, if any, between these conditions:
Yes, right sided facial cellulitis is enhanced by/contributed to/associated with/due to type 2 diabetes.
No, right sided facial cellulitis is not enhanced by/associated with/associated with/due to type 2 diabetes but it is due to ___. (Please specify)
Other(please specify)
Use of terms such as suspected, likely, concern for, or probable (associated with a specific diagnosis that is being evaluated, monitored, or treated as if it exists) are acceptable and can be coded in the inpatient setting, when documented at the
time of discharge.
Thank you,
Barbra Borrego RN BSN CCDS
CDI Specialist
please contact via tiger text
Please use your independent medical judgment in providing your response.
--- NOTE | 2024-03-27 11:07 | CM ---
Patient seen at bedside.
IMM explained & signed.
No needs
PLAN: Home, no needs.
Patient will transport self - drove to hospital
--- NOTE | 2024-03-27 11:20 | W.PN.HOSP.TC ---
Today's Communication/Plan
-
Monitor vital signs see plan
Transition to p.o. antibiotics on discharge
Patient will follow-up with ENT outpatient
Time of discharge 38 minutes
Assessment / Plan
Assessment / Plan
General: Well Developed, Well Nourished and No Apparent Distress
HEENT: NormoCephalic, Moist mucous membranes and Atraumatic
Respiratory: Clear
Cardiac: S1/S2 and Regular Rhythm; No Murmur or Rub
GI: Soft, Non Tender, Non Distended and Normal Bowel Sounds
Musculoskeletal: No Edema
Neuro: AO x 3 and Nonfocal/grossly intact
Psych: Calm
Right-sided facial cellulitis
Cellulitis is likely not associated with diabetes
-CT with Mild inflammatory fat stranding of the right facial subcutaneous fat. No drainable fluid collection within the limitations of streak artifact from dental amalgam. Severe mucosal thickening of the right maxillary and right ethmoid sinuses.
-Culture from the wound obtained; f/u cx, growing gram-positive cocci
-COVID and flu negative
-Spoke with ENT, started vancomycin. Developed mild flushing after vancomycin 03/25. Advised nurse to do slow infusion. Tolerated vancomycin today; check MRSA screen neg; spoke with ENT, will dc on augmentin and bactrim. Patient follow-up with
ENT office
-Tylenol prn for fever
-ENT following
# Essential hypertension
-Blood pressure stable
Norvasc and lisinopril/HCTZ continue with hold parameters
# Hypothyroidism
-Levothyroxine continued
# Hyperlipidemia
-Statin continued
# Type 2 diabetes
-Sliding scale
-Carb controlled diet
-Hold Ozempic
A1c 6
# DVT prophylaxis
-Lovenox subcu
# CODE STATUS
-Full code
Anticipated Discharge: Today
Subjective/Interval History
-
Date of Service: March 27, 2024
denies pain
Objective Data
-
Labs:
Laboratory Results
03/27/24
06:20
WBC 4.3 L
Hgb 13.1
Hct 39.2
Plt Count 228
Sodium 140
Potassium 4.0
Chloride 96 L
Carbon Dioxide 31 H
BUN 23 H
Creatinine 0.8
Glucose 112 H
Calcium 9.9
Vital Signs:
Vital Signs
Temp Pulse Resp BP Pulse Ox
98.4 F 61 16 129/62 97
03/27/24 07:10 03/27/24 08:12 03/27/24 07:10 03/27/24 08:12 03/27/24 08:20
I&O
03/26/24 03/27/24 03/28/24
06:59 06:59 06:59
Intake Total 2220 / 2220 1680 / 1680
Balance 2220 / 2220 1680 / 1680
--- NOTE | 2024-03-27 11:26 | W.DCSUMMARY ---
Discharge Summary
Discharge Data
Date of Admission: 03/24/24
Date of Discharge: 03/27/24
-
Pending Results: No
Hospital Course
68-year-old female with past medical history of hypothyroidism, hyperlipidemia, type 2 diabetes mellitus, essential hypertension came to the hospital with right-sided facial cellulitis. Patient did had right nasal drainage which appeared to be
growing gram-positive cocci. Patient was seen by ENT who recommended MRSA coverage which was initially treated with IV vancomycin and was later transitioned to oral antibiotics prior to discharge. ENT recommended patient to follow-up with them
outpatient.Once patient symptoms continue to improve, she was then discharged home with instructions to follow-up with all her physicians outpatient.
Discharge Plan
-
Patient Disposition: Home (Routine Discharge)
Discharge Diagnosis/Procedures: Right-sided facial cellulitis
Sinusitis
Condition: Good
Diet: As tolerated
Activity: As tolerated
Driving Restrictions: As prior to admission
Bathing Restrictions: None
Referrals:
Mike Garcia MD [Family Provider] - in less than 1 week
Stephan Mason MD [Active] - in less than 1 week
Prescriptions:
New
mupirocin 2 % Ointment
1 applic intranasal BID Qty: 22 0RF
amoxicillin-pot clavulanate 875-125 mg tablet
1 tab PO BID Qty: 14 0RF
sulfamethoxazole-trimethoprim [Bactrim DS] 800-160 mg tablet
1 tab PO BID Qty: 14 0RF
Probiotic 10 billion cell capsule
10,000 mmu cells PO DAILY Qty: 10 0RF
Continued
amlodipine 2.5 mg Tablet
2.5 mg PO DAILY
levothyroxine 88 mcg Tablet
88 mcg PO DAILY
lisinopril-hydrochlorothiazide 20-25 mg Tablet
1 tab PO DAILY
rosuvastatin 20 mg Tablet
20 mg PO DAILY
Tremfya 100 mg/mL syringe
100 mg SC [id number]
Ozempic 1 mg/dose (4 mg/3 mL) Pen Injector
1 mg SC WE
Discharge Orders:
Discharge Patient (As Directed); Ordered 03/27/24
Ordered By: Ashish Manzanares
Discharge Date and Time
Discharge Date/Time: 03/27/24 12:51
Print Language: [id number]
[2024-03-27 12:37] VITALS: BP 126/72
== END 2024-03-27 12:51 | disposition home or self-care (01) | DRG 603 ==
LOC: 2 NORTH 15:17
PROVIDERS: Emergency Medicine; Physician Assistant; Registered Nurse; ADMITTING PHYSICIAN Internal Medicine; ATTENDING PHYSICIAN Internal Medicine; CONSULT PHYSICIAN Otolaryngology; EMERGENCY PHYSICIAN Emergency Medicine; FAMILY PHYSICIAN Internal Medicine
DX: L03.211 Cellulitis of face (principal); I10 Essential (primary) hypertension; E03.9 Hypothyroidism, unspecified; J32.9 Chronic sinusitis, unspecified; E11.9 Type 2 diabetes mellitus without complications; E78.5 Hyperlipidemia, unspecified; L40.9 Psoriasis, unspecified; Z60.2 Problems related to living alone; Z22.7 Latent tuberculosis; Z79.890 Hormone replacement therapy; Z82.49 Family history of ischemic heart disease and other diseases of the circulatory system; Z11.52 Encounter for screening for COVID-19
CPT/HCPCS: 70487; 80048; 80053; 82962; 83036; 83605; 85025; 85027; 87070; 87077; 87147; 87205; 87502; 87811; 96374; 96375; 96376; 99284; Q9967

== ENCOUNTER 2024-04-01 10:33 | Emergency (ER) | payer MEDICARE, OTHER, SELFPAY ==
[2024-04-01 10:55] VITALS: BP 124/84
--- NOTE | 2024-04-01 11:23 | EDRN ---
Dr. Camargo in room w/pt at this time.
--- NOTE | 2024-04-01 11:33 | ED.GENMED ---
History of Present Illness
General
Chief Complaint: Abdominal Pain
Time Seen by Provider: 04/01/24 11:15
History of Present Illness
History of Present Illness:
Patient is a 68-year-old female with history of diabetes and recent admission for sinusitis and right-sided facial cellulitis. She has gotten 8 days of antibiotics for this. She states that her symptoms are significantly improved. She still has a
little bit of pain but the erythema has resolved and she has no drainage from the nostril. Denies any fevers. She was post be on 10 days of antibiotics but states she is not tolerating the oral antibiotics. She notes that she has a very strong
gag reflex and now is vomiting up every time she takes the Bactrim and Augmentin as prescribed. She tried p.o. Zofran this morning without relief. Denies focal abdominal pain.
Past History
Past History
ED Past Medical History: HTN and Hypothyroidism
ED Past Surgical History: Appendectomy
Social History
Tobacco: Non-smoker
Alcohol: None
Drug: None
Living: with family
Family History
Family History: Early CAD (Mother age 50 [place], Father age 39 [place], brother age 39 [place], sister age 61 [place], other brother with CAD and multiple stents.)
Phy Exam
Physical Exam
Physical Exam:
GENERAL APPEARANCE: NAD, well developed/ well nourished
EYES lids/conjunctiva normal
EARS/NOSE/THROAT no facial erythema. No drainage from nostrils , mucous membranes moist, uvula midline without oral pharyngeal erythema, exudate or swelling
HEAD/NECK normocephalic atraumatic, neck is supple.
RESPIRATORY respiratory effort normal, speaks in full sentences, no accessory muscle use. Lungs clear to auscultation without rhonchi, wheezes, rales
CARDIAC Regular rate and rhythm, no edema.
ABDOMINAL Soft, ND/NT. No pulsatile masses on exam, rebound tenderness, Muñoz sign or pain over Mcburney's point.
MUSCLES/EXTREMITIES No abnormal range of motion, no swelling.
SKIN Warm, pink and dry. No rashes
NEUROLOGICAL Speech is clear and appropriate. Normal level of consciousness. 5/5 strength in all extremities.
PSYCH Normal mood and affect. Judgement/competence is appropriate
Course
Orders/Labs/Results
Orders:
Orders
04/01/24 11:32
0.9% Sodium Chloride 1000 ml [Nss] 1,000 ml IV BOLUS
CefTRIAXone [Rocephin] 1,000 mg IV NOW STA
Ondansetron Injectable [Zofran] 4 mg IV NOW STA
04/01/24 11:53
Basic Metabolic Panel Urgent
Complete Blood Count/With Diff Urgent
Lipase Urgent
Abnormal Lab Results
04/01/24
11:53
MCV 72.8 L fL
(81.0-99.0)
MCH 25.1 L pg
(27.0-31.0)
Absolute Lymphs (auto) 3.5 H 10^3/uL
(1.2-3.4)
Neutrophils % 26.5 L %
(42.2-75.2)
Lymphocytes % 58.3 H %
(20.5-51.1)
Eosinophils % 6.6 H %
(0-6)
Carbon Dioxide 21 L mmol/L
(22-30)
BUN 27 H mg/dl
(7-17)
Glucose 104 H mg/dl
(70-99)
04/01/24 11:53
04/01/24 11:53
Vital Signs
Initial and Last Documented VS:
Initial Vital Signs
Temp Pulse Resp BP Pulse Ox
98.2 F 81 18 124/84 97
04/01/24 10:55 04/01/24 10:55 04/01/24 10:55 04/01/24 10:55 04/01/24 10:55
Last Documented Vital Signs
Temp Pulse Resp BP Pulse Ox
98.2 F 65 16 143/73 100
04/01/24 10:55 04/01/24 14:10 04/01/24 14:10 04/01/24 14:10 04/01/24 14:10
*Critical Care Note
Total Time (30-74mins, 75-104mins- exclusive of procedures): Not Applicable
ED Attending Note
ED Attending Note
ED Attending Note:
Patient is very well-appearing and her symptoms of infection have resolved. She now presents with nausea and vomiting and intolerance of the antibiotics. Suspect side effect to antibiotics. She has no diarrhea or significant abdominal pain to
suggest C. difficile. Given her well appearance and the fact that she has already had 8 days of antibiotics with resolution of symptoms, I feel that she does not need admission for further IV antibiotics. Will give one-time dose of ceftriaxone to
last her through to day 10 and discontinue the oral antibiotics.
-
Portions of this chart may have been created with voice recognition software.� Occasional wrong word or��sound alike� substitutions may have occurred due to the inherent limitations of voice recognition software.
Discharge Plan
Departure
Patient Disposition: Home (Routine Discharge)
Date of Disposition: 04/01/24
Time of Disposition: 13:56
Patient with high blood pressure during this ER visit?: No
Discharge Problem:
Nausea & vomiting
Instructions: Acute Nausea and Vomiting
Prescriptions:
No Action
amlodipine 2.5 mg Tablet
2.5 mg PO DAILY
levothyroxine 88 mcg Tablet
88 mcg PO DAILY
lisinopril-hydrochlorothiazide 20-25 mg Tablet
1 tab PO DAILY
rosuvastatin 20 mg Tablet
20 mg PO DAILY
Tremfya 100 mg/mL syringe
100 mg SC [id number]
Ozempic 1 mg/dose (4 mg/3 mL) Pen Injector
1 mg SC WE
mupirocin 2 % Ointment
1 applic intranasal BID Qty: 22 0RF
amoxicillin-pot clavulanate 875-125 mg tablet
1 tab PO BID Qty: 14 0RF
sulfamethoxazole-trimethoprim [Bactrim DS] 800-160 mg tablet
1 tab PO BID Qty: 14 0RF
Probiotic 10 billion cell capsule
10,000 mmu cells PO DAILY Qty: 10 0RF
Referrals:
Mike Garcia MD [Family Provider] -
Interventions
Interventions:
*Risk Screen - Suicide Last Done: 04/01/24 11:50
*General Assessment Last Done: 04/01/24 11:50
*Neglect/Abuse Screening Last Done: 04/01/24 11:50
ED- Fall Risk Assessment Last Done: 04/01/24 11:50
*ED COVID-19 Vaccine History Last Done: 04/01/24 11:50
UR-Rydqag-Sqcrngtvkm Assessment Last Done: 04/01/24 11:50
Discharge Date and Time
Print Language: COLOMBIAN
[2024-04-01 11:50] VITALS: BP 144/68; BMI 27.6
--- NOTE | 2024-04-01 11:50 | EDRN ---
Pt states that she has had N/V since yesterday related to antibiotics that she is taking for a sinusitis/bilateral facial pain in cheek areas. Pt states she only missed 1 dose this am of antibiotic. Pt also has abd pain throughout, worse w/
palpations.
[2024-04-01] MEDS: NSS 1000 IV (11:54)
[2024-04-01] MEDS: ROCEPHIN 1000 MG IV (11:56)
[2024-04-01] MEDS: ZOFRAN 4 MG IV (11:56)
[2024-04-01 12:00] VITALS: BP 125/62
[2024-04-01 12:05] LABS: Hematocrit 38.2 % (37.0-47.0); Hemoglobin 13.2 g/dL (12.0-16.0); Mean Corp Hgb Conc. 34.6 g/dL (33.0-37.0); Mean Corpuscular Hgb 25.1 pg (27.0-31.0); Mean Corpuscular Volume 72.8 fL (81.0-99.0); Mean Platelet Volume 9.7 fL (7.4-10.4); Platelet Count 284 10^3/uL (130-400); Red Blood Cell Count 5.25 10^6/uL (4.20-5.40); Red Cell Dist. Width 13.3 % (11.5-14.5); White Blood Cell Count 5.9 10^3/uL (4.8-10.8)
--- NOTE | 2024-04-01 12:10 | EDRN ---
D/T hemolysis per lab the CMP was changed to BMP at this time. Will inform Dr. Camargo.
[2024-04-01 12:13] LABS: Blood Urea Nitrogen 27 mg/dl (7-17); Calcium 10.2 mg/dl (8.4-10.2); Carbon Dioxide 21 mmol/L (22-30); Chloride 100 mmol/L (98-107); Estimated Creatinine Clearance 63 ml/min; Glucose 104 mg/dl (70-99); Lipase 226 U/L (23-300); Sodium 137 mmol/L (135-145); eGFR > 60.00
[2024-04-01 12:16] LABS: % Eosinophils 6.6 % (0-6); % Immature Granulocytes 0.5 % (0-0.5); % Lymphocytes 58.3 % (20.5-51.1); % Monocytes 7.1 % (1.7-9.3); % Neutrophils 26.5 % (42.2-75.2); Absolute Basophils 0.1 10^3/uL (0-0.2); Absolute Eosinophils 0.4 10^3/uL (0-0.7); Absolute Lymphocytes 3.5 10^3/uL (1.2-3.4); Absolute Monocytes 0.4 10^3/uL (0.1-0.6); Absolute Neutrophils 1.6 10^3/uL (1.4-6.5); Nucleated Red Blood Cells % 0 %
--- NOTE | 2024-04-01 12:50 | EDRN ---
Pt states her pain (abd 7/10 and Dale cheeks 7/10) remains though nausea is 90% better at this time.
[2024-04-01 14:10] VITALS: BP 143/73
== END 2024-04-01 14:15 | disposition home or self-care (01) ==
LOC: EMR 10:33
PROVIDERS: EMERGENCY PHYSICIAN Emergency Medicine; FAMILY PHYSICIAN Internal Medicine
DX: R11.2 Nausea with vomiting, unspecified (principal); E11.9 Type 2 diabetes mellitus without complications
CPT/HCPCS: 99284; 96374; 96375; 96361; 80048; 83690; 85025